=== PATIENT | female | born 1950 | race Caucasian/White ===

== ENCOUNTER → 2018-12-17 15:17 | Outpatient (CLI) | payer OTHER, MEDICARE, SELFPAY ==
--- NOTE | 2018-12-17 | DI.MG.S_ITS ---
BILATERAL DIGITAL SCREENING MAMMOGRAM 3D/2D WITH CAD: 12/17/2018 CLINICAL: Routine screening. Comparison is made to exams dated: 12/07/2017 mammogram, 11/21/2016 mammogram, and 11/18/2015 mammogram - [facility]. There are scattered fibroglandular elements in both breasts. Current study was also evaluated with a Computer Aided Detection (CAD) system. No significant masses, calcifications, or other findings are seen in either breast. There has been no significant interval change. IMPRESSION: NEGATIVE There is no mammographic evidence of malignancy. A 1 year screening mammogram is recommended. This exam was interpreted at Station ID: [id number]. NOTE: For mammograms, a report in lay terms will be sent to the patient. Approximately 15% of breast malignancies will not be visualized mammographically. In the management of a palpable breast mass, a negative mammogram must not discourage biopsy of a clinically suspicious lesion. Electronically Signed By: Richy pereira/jovita:12/17/2018 18:42:48 letter sent: Normal Exam ACR BI-RADS Category 1: Negative 3341F
== END ==
PROVIDERS: PCP Family Medicine; Visit Provider Family Medicine
DX: Z12.31 Encounter for screening mammogram for malignant neoplasm of breast (principal)
CPT/HCPCS: 77063; 77067

== ENCOUNTER → 2019-01-27 09:48 | Outpatient (CLI) | payer OTHER, MEDICARE, SELFPAY ==
--- NOTE | 2019-01-27 | DI.RAD.S_ITS ---
PROCEDURE: XR KNEE RT 3V INDICATIONS: RIGHT KNEE PAIN TECHNIQUE: 3 views of the knee were acquired. COMPARISON: [facility], , KNEE 3V RIGHT, 02/05/2012, 8:59. FINDINGS: Bones: No fractures or dislocations. No suspicious bony lesions. Scattered degenerative subchondral sclerosis and spurring. Mild narrowing of the medial and lateral and patellofemoral joint spaces which appears unchanged Soft tissues: No joint effusion. No suspicious soft tissue calcifications. There is mild prepatellar soft tissue swelling IMPRESSION: Mild prepatellar soft tissue swelling. Unchanged mild right knee joint degeneration since 02/05/12 Dictated by: Armani Del Rio M.D. on 01/27/2019 at 10:41 Approved by: Armani Del Rio M.D. on 01/27/2019 at 10:43
== END ==
PROVIDERS: PCP Family Medicine; Visit Provider Family Medicine
DX: M25.561 Pain in right knee (principal); M17.11 Unilateral primary osteoarthritis, right knee; M79.89 Other specified soft tissue disorders
CPT/HCPCS: 73562

== ENCOUNTER 2019-03-17 07:30 | Day surgery (SDC) | payer OTHER, MEDICARE, SELFPAY ==
--- NOTE | 2019-03-17 | PATH_ITS ---
[facility] Accession Number: [id number] . 01 Material submitted: . PART A: colon - ASCENDING COLON NEAR CECUM PART B: colon - COLON BIOPSY AT 80 CM . 02 Diagnosis: A. Ascending Colon Near Cecum, Biopsy: Tubular adenoma in two of three fragments. . B. Colon, 80 cm, Biopsy: Tubular adenoma in one of two fragments. Benign lymphoid aggregate in one fragment. MRV/03/18/2019 . 02 Electronically signed: . Sabi Gandhi MD, Pathologist NPI- [id number] . 01 Gross description: . Part A: ASCENDING COLON NEAR CECUM: Received in formalin are 2 fragment(s) of toribio, soft tissue measuring 0.2 x 0.1 x 0.1 cm to 0.4 x 0.3 x 0.2 cm which is entirely submitted and submitted entirely in 1 cassette(s) Part B: COLON BIOPSY AT 80 CM: Received in formalin are 2 fragment(s) of toribio, soft tissue measuring 0.2 x 0.2 x 0.2 cm to 0.3 x 0.2 x 0.2 cm which is entirely submitted and submitted entirely in 1 cassette(s) /DMC /DMC . 02 Pathologist provided ICD-10: D12.2, D12.6 . 02 CPT . 056385, [id number] Performed at: 01 [facility] [address] [place] [address], [place], [place] [id number] MD Jamey Rutherford MD Phone: [phone] Performed at: 02 [facility] [address] [place], [place] [id number] MD Sabi Gandhi MD Phone: [phone]
[2019-03-17 08:00] VITALS: BP 145/91; PULSE 74; RESP 16; TEMP 36.6; O2SAT 74; BMI 19.3
[2019-03-17] MEDS: SODIUM CHLORIDE 0.9% 1,000 ML 200 ML IV (08:04)
[2019-03-17] MEDS: ONDANSETRON 4 MG/2 ML INJ IV (08:29)
--- NOTE | 2019-03-17 08:40 | P.HP_ITS ---
History of Present Illness Date Patient Seen: 03/17/19 Time Patient Seen: 08:25 Chief complaint: [id number] Narrative: The patient is a woman here for screening colonoscopy. Last exam was 5 years ago. She has had polyps removed in the past. Patient History Medical History (Updated 03/17/19 @ 08:40 by Gilberto Anderson MD) Hypertension (Chronic) Hypothyroidism (Chronic) Kidney stones (Chronic) Type 2 diabetes mellitus (Chronic) Surgical History (Updated 03/17/19 @ 08:40 by Gilberto Anderson MD) H/O knee surgery (Resolved) History of appendectomy (Resolved) Social History household members: spouse Smoking Status: Never smoker Family & Social History Social History: household members spouse Tobacco & Substance use: Smoking Status Never smoker Meds Home Medications Medication Instructions Recorded Confirmed Type hydrocodone-acetaminophen [[place]] 1 - 2 tab PO Q6HP PRN #5 tab 10/12/17 03/17/19 Rx Saccharomyces boulardii 250 mg 250 mg PO BID 09/09/18 03/17/19 History capsule almotriptan malate 6.25 mg tablet 6.25 mg PO ONCE 09/09/18 03/17/19 History atenolol 50 mg tablet 50 mg PO DAILY 09/09/18 03/17/19 History atorvastatin 80 mg tablet 80 mg PO DAILY 09/09/18 03/17/19 History calcium citrate PO 09/09/18 01/28/19 History cholecalciferol (vitamin D3) 2,000 4,000 unit PO DAILY 09/09/18 03/17/19 History unit capsule flaxseed oil 1,000 mg capsule 1,000 mg PO DAILY 09/09/18 03/17/19 History fluoxetine 20 mg capsule 20 mg PO DAILY 09/09/18 03/17/19 History levothyroxine 50 mcg tablet 50 mcg PO DAILY 09/09/18 03/17/19 History lorazepam 0.5 mg tablet 0.5 mg PO Q8H PRN tab 09/09/18 03/17/19 History metformin 500 mg tablet 1,000 mg PO BID 09/09/18 03/17/19 History acyclovir 5 % topical ointment 1 applictn TOP BID PRN gram 01/28/19 03/17/19 History nystatin 100,000 unit/gram topical 1 applictn TOP TID PRN 01/28/19 03/17/19 History cream triamcinolone acetonide 0.1 % 1 applictn TOP QID PRN 01/28/19 03/17/19 History topical cream Resmed Airsense 10 CPAP #1 ea 01/29/19 History Allergies Allergy/AdvReac Type Severity Reaction Status Date / Time latex [LATEX] Allergy Severe HIVES Verified 03/17/19 08:15 cephalexin AdvReac Intermediate Diarrhea Verified 03/17/19 08:15 Review of Systems Review of Systems No cough heart problems chest pain black or bloody bowel movements seizures or blackouts Exam Vital Signs (past 8 hours): - 03/17/19 08:00 Temperature 97.8 F Pulse Rate 74 Respiratory Rate 16 Blood Pressure 145/91 H Pulse Oximetry 74 L Oxygen Delivery Method Room Air Oxygen Flow Rate 95 Narrative Exam Narrative: Pleasant cooperative patient no apparent distress. Lungs are clear to auscultation. No rales or rhonchi. Heart regular rate and rhythm no murmur gallop. Abdomen is soft nontender without mass. No obvious hernias. Patient is alert and oriented x3. Assessment & Plan Assessment & Plan narrative: The patient for a screening colonoscopy. I have discussed the procedure with them. Risks of bleeding, perforation which would necessitate major operation, failure to find remove all lesions, the potential tattoo were all discussed. All questions were answered. They wished to proceed.
--- NOTE | 2019-03-17 08:40 | PM.PREOP ---
Pre-operative Note Interval Note History & Physical reviewed/Exam performed by Physician: Yes Changes to H&P: No ASA Class (for procedural sedation): III
[2019-03-17] MEDS: MIDAZOLAM 5 MG/5 ML VIAL IV (09:00)
[2019-03-17] MEDS: fentaNYL 250 MCG/5 ML INJ IV (09:01)
[2019-03-17 09:10] VITALS: BP 104/65; PULSE 68; RESP 12; TEMP 36.3; O2SAT 96
--- NOTE | 2019-03-17 09:12 | P.OP.ENDO_ITS ---
Operative Date/Time/Diagnoses Date of procedure: 03/17/19 Time of procedure: 09:09 Pre-op diagnosis: History of polyps. Screening exam. Last exam 5 years ago. Post-op diagnosis: same (Scattered but rare diverticuli. Two small polyps. Internal hemorrhoids.) Procedure & Clinicians Study performed: Colonoscopy with cold biopsy Same procedure as scheduled: Yes Indications: Screening Surgeon: Gilberto Anderson Procedure Notes SCOAP/Timeout: Performed Procedure in detail: The patient was placed in the left lateral decubitus position and underwent IV sedation directed by the surgeon consisting of fentanyl and Versed. Digital exam was unremarkable. The scope was inserted and advanced through the rectum into the sigmoid, descending, transverse, and ascending colon. Pressure was applied to make our way into the cecum. There was a small lesion just above side the cecum which I biopsied on the way in.. The cecum was reached identified by the ileocecal valve and the area where an appendiceal opening would have been located (patient has had an appendectomy and it appears the entire opening was obliterated). The scope was gradually brought out. One other Polyps was found at 80 cm from the anal verge. The sc ope ultimately was retroflexed in the rectum. The appearance was remarkable for moderately size hemorrhoids without ulceration. The scope was removed and the patient tolerated the procedure well prep was very good. Scope withdrawal time: Eightmin(excludes biopsy time) Sedation minutes: 26 Findings: diverticulosis (Rare but scattered), internal hemorrhoids and polyp (Two small polyps) Recommendations: Colonscopy in 5 years Follow up: as needed Disposition: PACU
[2019-03-17 09:17] VITALS: BP 100/64; PULSE 70; RESP 14; O2SAT 94
[2019-03-17 09:22] VITALS: BP 114/75; PULSE 70; RESP 14; O2SAT 94
[2019-03-17 09:25] VITALS: BP 107/81; PULSE 70; RESP 14; TEMP 36.6; O2SAT 94
[2019-03-17 09:40] VITALS: BP 110/80; PULSE 70; RESP 14; TEMP 36.5; O2SAT 94
== END 2019-03-17 09:46 | disposition home or self-care (01) ==
LOC: ENDO 07:34
PROVIDERS: PCP Family Medicine; Visit Provider Specialist
PROC: 0DJD8ZZ Inspection of Lower Intestinal Tract, Via Natural or Artificial Opening Endoscopic (ICD-10-PCS; CPT 45378; principal; 2019-03-17 08:45)
DX: Z86.010 Personal history of colon polyps (principal); K64.8 Other hemorrhoids; K57.30 Diverticulosis of large intestine without perforation or abscess without bleeding; I10 Essential (primary) hypertension; E03.9 Hypothyroidism, unspecified; E11.9 Type 2 diabetes mellitus without complications; Z79.84 Long term (current) use of oral hypoglycemic drugs; D12.6 Benign neoplasm of colon, unspecified; D12.2 Benign neoplasm of ascending colon
CPT/HCPCS: 45380; 99152; J2250; J2405; J3010

== ENCOUNTER → 2019-08-04 11:17 | Outpatient (ROUT) | payer OTHER, MEDICARE, SELFPAY ==
[2019-08-04 11:36] LABS: Influenza A - CEPHEID Flu A NEGATIVE (NEGATIVE); Influenza B - CEPHEID Flu B NEGATIVE (NEGATIVE)
== END ==
PROVIDERS: PCP Family Medicine; Visit Provider Nurse Practitioner Family
DX: R05 Cough (principal); R50.9 Fever, unspecified; R51 Headache
CPT/HCPCS: 87502

== ENCOUNTER → 2020-02-24 14:39 | Outpatient (CLI) | payer OTHER, MEDICARE, SELFPAY ==
--- NOTE | 2020-02-24 | DI.MG.S_ITS ---
BILATERAL DIGITAL SCREENING MAMMOGRAM 3D/2D WITH CAD: 02/24/2020 CLINICAL: Routine screening. Comparison is made to exams dated: 12/17/2018 mammogram, 12/07/2017 mammogram, and 11/21/2016 mammogram - [facility]. The tissue of both breasts is predominantly fatty. Current study was also evaluated with a Computer Aided Detection (CAD) system. No significant masses, calcifications, or other findings are seen in either breast. There has been no significant interval change. IMPRESSION: NEGATIVE There is no mammographic evidence of malignancy. A 1 year screening mammogram is recommended. This exam was interpreted at Station ID: [id number]. NOTE: For mammograms, a report in lay terms will be sent to the patient. Approximately 15% of breast malignancies will not be visualized mammographically. In the management of a palpable breast mass, a negative mammogram must not discourage biopsy of a clinically suspicious lesion. Electronically Signed By: Susan willis/jovita:02/24/2020 17:48:15 letter sent: Normal Exam ACR BI-RADS Category 1: Negative 3341F
== END ==
PROVIDERS: PCP Family Medicine; Referring Provider Family Medicine; Visit Provider Family Medicine
DX: Z12.31 Encounter for screening mammogram for malignant neoplasm of breast (principal)
CPT/HCPCS: 77063; 77067

== ENCOUNTER → 2020-09-16 17:05 | Outpatient (CLI) | payer OTHER, MEDICARE, SELFPAY ==
--- NOTE | 2020-09-16 17:08 | DI.RAD.S_ITS ---
PROCEDURE: XR FINGER RT MIN 2V INDICATIONS: LEFT MIDDLER FINGER PAIN TECHNIQUE: AP hand, 2 views of the 3rd finger(s) acquired. COMPARISON: None. FINDINGS: Bones: No fractures or dislocations. No suspicious bony lesions. Soft tissues: No suspicious soft tissue calcifications. IMPRESSION: No fracture or foreign body seen, mild soft tissue swelling at the distal phalanx of the 3rd digit. Dictated by: Graeme Landa M.D. on 09/16/2020 at 17:33 Approved by: Graeme Landa M.D. on 09/16/2020 at 17:34
== END ==
PROVIDERS: PCP Family Medicine; Referring Provider Family Medicine; Visit Provider Family Medicine
DX: M79.645 Pain in left finger(s) (principal); M79.89 Other specified soft tissue disorders
CPT/HCPCS: 73140

== ENCOUNTER → 2021-02-22 11:02 | Outpatient (CLI) | payer OTHER, MEDICARE, SELFPAY ==
[2021-02-22 12:43] LABS: COVID19 -Nasal RAPID Negative (Negative)
== END ==
PROVIDERS: PCP Family Medicine; Visit Provider Physician Assistant
DX: Z01.812 Encounter for preprocedural laboratory examination (principal); Z20.822 Contact with and (suspected) exposure to COVID-19
CPT/HCPCS: 87635

== ENCOUNTER → 2021-02-23 15:01 | Outpatient (CLI) | payer OTHER, MEDICARE, SELFPAY | PROVIDERS: PCP Family Medicine; Referring Provider Family Medicine; Visit Provider Family Medicine | DX: Z78.0 Asymptomatic menopausal state (principal); E11.9 Type 2 diabetes mellitus without complications | CPT/HCPCS: 77080 ==

== ENCOUNTER → 2021-02-24 11:19 | Outpatient (CLI) | payer OTHER, MEDICARE, SELFPAY ==
--- NOTE | 2021-02-24 | DI.MG.S_ITS ---
BILATERAL DIGITAL SCREENING MAMMOGRAM 3D/2D WITH CAD: 02/24/2021 CLINICAL: Routine screening. Comparison is made to exams dated: 02/24/2020 mammogram, 12/17/2018 mammogram, and 12/07/2017 mammogram - [facility]. The tissue of both breasts is predominantly fatty. Current study was also evaluated with a Computer Aided Detection (CAD) system. No significant masses, calcifications, or other findings are seen in either breast. There has been no significant interval change. IMPRESSION: NEGATIVE There is no mammographic evidence of malignancy. A 1 year screening mammogram is recommended. This exam was interpreted at Station ID: [id number]. NOTE: For mammograms, a report in lay terms will be sent to the patient. Approximately 15% of breast malignancies will not be visualized mammographically. In the management of a palpable breast mass, a negative mammogram must not discourage biopsy of a clinically suspicious lesion. Electronically Signed By: Ray duncan/jovita:02/24/2021 14:39:27 letter sent: Normal Exam ACR BI-RADS Category 1: Negative 3341F
--- NOTE | 2021-02-24 | DI.US.S_ITS ---
PROCEDURE: US ABDOMEN COMPLETE INDICATIONS: FATTY LIVER, CHEST PAIN TECHNIQUE: Real-time scanning was performed of the abdominal and retroperitoneal organs, with image documentation. COMPARISON: [facility], US, US RENAL COMPLETE, 08/07/2018, 0:21. [facility], CT, CT KUB, 08/01/2018, 14:43. [facility], US, ABDOMEN COMPLETE, 02/13/2011, 10:23. FINDINGS: This study is limited by body habitus. Liver: The liver demonstrates enlarged size. The liver demonstrates generalized moderately increased echogenicity. This decreases ultrasound sensitivity for detection of hepatic masses. Gallbladder: There is a 6 mm gallbladder wall polyp seen. No findings of gallstones or sludge are seen. The gallbladder wall is not thickened, measuring 3 mm or less. No specific pericholecystic fluid is seen. The sonographic Kumar sign is negative. Biliary ducts: Intrahepatic bile ducts are non-dilated. Extrahepatic bile duct caliber measures 6 mm. Normal is 6-7 mm or less in diameter, or 10 mm or less post-cholecystectomy. Pancreas: Visualized portions of the pancreas are sonographically normal. Spleen: The spleen is enlarged, measuring 15 cm. Kidneys: Kidneys are normal in size and echotexture. Right kidney measures 12.4 cm long; left kidney measures 12.5 cm long. No hydronephrosis or nephrolithiasis. No solid masses. Aorta: Visualized aorta is normal in caliber at less than 3 cm. Iliacs: Proximal common iliac arteries are normal in caliber at less than 2.5 cm. IVC: Intrahepatic inferior vena cava is patent. Miscellaneous: No free abdominal fluid. IMPRESSION: Enlarged, fatty liver. Splenomegaly. 6 mm gallbladder wall polyp seen. Dictated by: Nando Aaron M.D. on 02/28/2021 at 8:34 Approved by: Nando Aaron M.D. on 02/28/2021 at 8:36
--- NOTE | 2021-02-27 20:41 | DI.NM.S_ITS ---
DATE OF SERVICE: 02/24/2021 PROCEDURE: Pharmacological perfusion study. INDICATIONS: Chest pain with underlying diabetes mellitus and hypertension. RADIOPHARMACEUTICAL: 24.7 millicurie technetium-99m Myoview IV was injected at stress and 24.7 millicurie technetium-99m Myoview IV was injected at rest. CARDIAC STRESS: The patient underwent IV Lexiscan perfusion study under the supervision of an attending staff. The patient received IV Lexiscan as per protocol. She remained hemodynamically stable. No chest discomfort or anginal symptoms. Baseline rhythm was sinus with mild sinus bradycardia and anteroseptal T-wave inversion. During stress, there were no new convincing ischemic changes. No significant arrhythmias seen. RAW DATA: Breast shadow was seen. GATED STUDY: Stress LV ejection fraction 85 percent without any obvious wall motion abnormalities. Resting end-diastolic volume 116 mL. TID ratio 0.79, which is within normal limits. Lung/heart ratio 0.35, which is within normal limits. MYOCARDIAL PERFUSION: Stress supine, resting supine and stress prone images were compared to each other. The stress supine and resting supine images revealed small size, mildly decreased perfusion of inferior wall, as well as mid to distal anterior wall, which got significantly improved during prone images suggestive of breast tissue attenuation artifact. CONCLUSION: I will call this study likely a normal myocardial perfusion study with evidence of breast tissue attenuation artifact, which got significantly improved during prone images. No convincing ischemia or infarction features seen during stress prone images. Left ventricular function is preserved. As far as perfusion scan is concerned, this is a low-risk myocardial perfusion scan. Bridgette Mcdonald - Yessica/cristopher doc#: [id number]/job#: [id number] dd: 02/27/2021 16:58:00 dt: 02/27/2021 20:04:00 DICTATING MD/COPIES TO: Gregg Naranjo MD COPIES MNE: YOLI;
== END ==
PROVIDERS: PCP Family Medicine; Referring Provider Family Medicine; Visit Provider Family Medicine
DX: Z12.31 Encounter for screening mammogram for malignant neoplasm of breast (principal); K76.0 Fatty (change of) liver, not elsewhere classified; K82.4 Cholesterolosis of gallbladder; R16.1 Splenomegaly, not elsewhere classified; R07.9 Chest pain, unspecified; E11.9 Type 2 diabetes mellitus without complications; I10 Essential (primary) hypertension; Z78.0 Asymptomatic menopausal state
CPT/HCPCS: 76700; 77063; 77067; 78452; 93017; A9502; J2785

== ENCOUNTER → 2021-05-09 15:37 | Outpatient (CLI) | payer OTHER, MEDICARE, SELFPAY ==
--- NOTE | 2021-05-09 | DI.CT.S_ITS ---
PROCEDURE: CT ABDOMEN PELVIS WO CON INDICATIONS: KIDNEY STONES TECHNIQUE: Noncontrast 5 mm thick sections acquired from the diaphragms to the symphysis. 5 mm coronal and sagittal reformats were then performed. For radiation dose reduction, the following was used: automated exposure control, adjustment of mA and/or kV according to patient size. COMPARISON: [facility], CT, CT KUB, 08/01/2018, 14:43. FINDINGS: Image quality: Excellent. ABDOMEN: Lung bases: Lung bases are clear. Heart size is normal. Solid organs: Liver is enlarged. No hepatic steatosis. Gallbladder is unremarkable . Pancreas is normal in contours. Spleen is normal in size. No adrenal nodules. Kidneys are normal in size, without hydronephrosis or nephrolithiasis. No ureteral stones or hydroureter. Peritoneum and bowel: Small hiatal hernia. Unenhanced bowel loops demonstrate normal wall thickness and caliber. No free fluid or air. Nodes and vessels: No retroperitoneal or mesenteric adenopathy by size criteria. Aorta and inferior vena cava are normal in caliber. Miscellaneous: No ventral hernias. PELVIS: Genitourinary: Bladder wall thickness is normal. Miscellaneous: No inguinal hernias or adenopathy. Bones: No suspicious bony lesions. No vertebral body compression fractures. Lumbar degenerative change. Canal stenosis at L3-L4 IMPRESSION: 1. No renal stones, ureteral stones, or hydronephrosis. 2. Hepatomegaly. 3. Small hiatal hernia. 4. Lumbar degenerative change with canal stenosis at L3-L4. 5. No evidence of acute abdominal process. Dictated by: Jorge Macias M.D. on 05/09/2021 at 17:06 Approved by: Jorge Macias M.D. on 05/09/2021 at 17:10
== END ==
PROVIDERS: PCP Family Medicine
DX: N20.0 Calculus of kidney (principal); R16.0 Hepatomegaly, not elsewhere classified; K44.9 Diaphragmatic hernia without obstruction or gangrene; M47.816 Spondylosis without myelopathy or radiculopathy, lumbar region; M48.061 Spinal stenosis, lumbar region without neurogenic claudication
CPT/HCPCS: 74176

== ENCOUNTER → 2021-09-04 12:34 | Outpatient (CLI) | payer OTHER, MEDICARE, SELFPAY ==
--- NOTE | 2021-09-04 12:37 | DI.RAD.S_ITS ---
PROCEDURE: XR KNEE RT 3V INDICATIONS: swollen, painful R knee TECHNIQUE: 3 views of the knee were acquired. COMPARISON: [facility], , XR KNEE RT 3V, 01/27/2019, 10:11. FINDINGS: Bones: No fractures or dislocations. No suspicious bony lesions. Soft tissues: Mild joint effusion. No suspicious soft tissue calcifications. IMPRESSION: No visualized acute fracture or dislocation. However, if clinical concern and/or pain persist, short interval imaging followup in 7-10 days is recommended, as occult injury cannot be definitively excluded. Dictated by: Minnie Rowland M.D. on 09/04/2021 at 13:24 Approved by: Minnie Rowland M.D. on 09/04/2021 at 13:24
== END ==
PROVIDERS: PCP Family Medicine; Referring Provider Physician Assistant; Visit Provider Physician Assistant
DX: M25.561 Pain in right knee (principal); M25.461 Effusion, right knee
CPT/HCPCS: 73562

== ENCOUNTER → 2021-10-27 12:24 | Outpatient (CLI) | payer OTHER, MEDICARE, SELFPAY ==
--- NOTE | 2021-10-27 | DI.RAD.S_ITS ---
PROCEDURE: XR SHOULDER LT MIN 2V INDICATIONS: Adhesive capsulitis of left shoulder TECHNIQUE: 3 views of the shoulder were acquired. COMPARISON: None. FINDINGS: Bones: No fractures or dislocations. No suspicious bony lesions. Visualized ribs appear intact. Soft tissues: No suspicious soft tissue calcifications. IMPRESSION: No acute fracture. No osseous lesion. If symptoms and/or clinical suspicion for pathology persist, further assessment with repeat, or advanced imaging (e.g., CT, MRI, or bone scan) may be helpful for further assessment. Dictated by: Yariel Marino M.D. on 10/27/2021 at 14:52 Approved by: Yariel Marino M.D. on 10/27/2021 at 14:52
== END ==
PROVIDERS: PCP Family Medicine; Referring Provider Family Medicine; Visit Provider Family Medicine
DX: M75.02 Adhesive capsulitis of left shoulder (principal); M65.812 Other synovitis and tenosynovitis, left shoulder
CPT/HCPCS: 73030

== ENCOUNTER → 2022-02-26 13:52 | Outpatient (CLI) | payer OTHER, MEDICARE, SELFPAY ==
--- NOTE | 2022-02-26 13:53 | DI.MG.S_ITS ---
BILATERAL DIGITAL SCREENING MAMMOGRAM 3D/2D WITH CAD: 02/26/2022 CLINICAL: Routine screening. Family history of breast cancer. Comparison is made to exams dated: 02/24/2021 mammogram, 02/24/2020 mammogram, 12/17/2018 mammogram, and 12/07/2017 mammogram - [facility]. The tissue of both breasts is predominantly fatty. Current study was also evaluated with a Computer Aided Detection (CAD) system. No significant masses, calcifications, or other findings are seen in either breast. There has been no significant interval change. IMPRESSION: NEGATIVE There is no mammographic evidence of malignancy. A 1 year screening mammogram is recommended. Based on the Tyrer Cuzick model (a risk assessment model) the patient's lifetime risk is 3.7% and her 10 year risk is 2.2%. According to the ACR, ACS, and NCCN guidelines, an annual breast MRI exam along with mammogram is recommended if the patient's lifetime risk is 20% or greater. This exam was interpreted at Station ID: [id number]. NOTE: For mammograms, a report in lay terms will be sent to the patient. Approximately 15% of breast malignancies will not be visualized mammographically. In the management of a palpable breast mass, a negative mammogram must not discourage biopsy of a clinically suspicious lesion. Electronically Signed By: lD ayala/jovita:02/27/2022 08:06:19 letter sent: Normal Exam ACR BI-RADS Category 1: Negative 3341F
== END ==
PROVIDERS: PCP Family Medicine; Referring Provider Family Medicine; Visit Provider Family Medicine
DX: Z12.31 Encounter for screening mammogram for malignant neoplasm of breast (principal); Z80.3 Family history of malignant neoplasm of breast
CPT/HCPCS: 77063; 77067

== ENCOUNTER → 2022-04-03 15:58 | Outpatient (CLI) | payer OTHER, MEDICARE, SELFPAY ==
--- NOTE | 2022-04-03 | DI.US.S_ITS ---
PROCEDURE: US ABDOMEN COMPLETE INDICATIONS: DISEASE OF GALLBLADDER/FATTY LIVER TECHNIQUE: Real-time scanning was performed of the abdominal and retroperitoneal organs, with image documentation. COMPARISON: [facility], US, ABDOMEN COMPLETE, 02/13/2011, 10:23. FINDINGS: Liver: Liver is enlarged, measuring 19.6 cm and demonstrates diffusely increased echogenicity. Gallbladder: Small polyps within the gallbladder wall measuring 6 mm and 5 mm. Biliary ducts: Intrahepatic bile ducts are non-dilated. Extrahepatic bile duct caliber measures 5 mm. Normal is 6-7 mm or less in diameter, or 10 mm or less post-cholecystectomy. Pancreas: Visualized portions of the pancreas are sonographically normal. Spleen: Spleen is normal in size and homogeneous in echotexture. Kidneys: Kidneys are normal in size and echotexture. Right kidney measures 12.6 cm long; left kidney measures 11.4 cm long. No hydronephrosis or nephrolithiasis. No solid masses. Left inferior pole renal cyst measuring 9 mm. Aorta: Not well seen but within normal limits as visualized. Iliacs: Not seen IVC: Intrahepatic inferior vena cava is patent. Miscellaneous: No free abdominal fluid. IMPRESSION: 1. Gallbladder polyps. 2. No acute process. 3. Hepatic steatosis. Dictated by: Yariel Marino M.D. on 04/03/2022 at 17:05 Approved by: Yariel Marino M.D. on 04/03/2022 at 17:06
== END ==
PROVIDERS: PCP Family Medicine; Referring Provider Family Medicine; Visit Provider Family Medicine
DX: K82.8 Other specified diseases of gallbladder (principal); K82.4 Cholesterolosis of gallbladder; K76.0 Fatty (change of) liver, not elsewhere classified
CPT/HCPCS: 76700

== ENCOUNTER → 2023-02-27 09:51 | Outpatient (CLI) | payer MEDICARE, OTHER, SELFPAY ==
--- NOTE | 2023-02-27 | DI.MG.S_ITS ---
BILATERAL DIGITAL SCREENING MAMMOGRAM 3D/2D WITH CAD: 02/27/2023 CLINICAL: Routine screening. Family history of breast cancer. Comparison is made to exams dated: 02/26/2022 mammogram, 02/24/2021 mammogram, and 02/24/2020 mammogram - . Both breasts are almost entirely fatty (category a/<25% glandular tissue). Current study was also evaluated with a Computer Aided Detection (CAD) system. No significant masses, calcifications, or other findings are seen in either breast. There has been no significant interval change. IMPRESSION: NEGATIVE There is no mammographic evidence of malignancy. A 1 year screening mammogram is recommended. Based on the Tyrer Cuzick model (a risk assessment model) the patient's lifetime risk is 3.5% and her 10 year risk is 2.2%. According to the ACR, ACS, and NCCN guidelines, an annual breast MRI exam along with mammogram is recommended if the patient's lifetime risk is 20% or greater. This exam was interpreted at Station ID: [id number]. NOTE: For mammograms, a report in lay terms will be sent to the patient. Approximately 15% of breast malignancies will not be visualized mammographically. In the management of a palpable breast mass, a negative mammogram must not discourage biopsy of a clinically suspicious lesion. Electronically Signed By: Rosa hodges/jovita:02/27/2023 11:48:59 letter sent: Normal Exam ACR BI-RADS Category 1: Negative 3341F
== END ==
PROVIDERS: PCP Family Medicine; Referring Provider Family Medicine; Visit Provider Family Medicine
DX: Z12.31 Encounter for screening mammogram for malignant neoplasm of breast (principal); Z80.3 Family history of malignant neoplasm of breast
CPT/HCPCS: 77063; 77067

== ENCOUNTER → 2023-04-18 06:49 | Outpatient (CLI) | payer MEDICARE, OTHER, SELFPAY ==
--- NOTE | 2023-04-18 | DI.US.S_ITS ---
PROCEDURE: US ABDOMEN COMPLETE INDICATIONS: DIARRHEA AND INCREASED LIVER FUNCTION TESTS TECHNIQUE: Real-time scanning was performed of the abdominal and retroperitoneal organs, with image documentation. COMPARISON: [facility], US, US ABDOMEN COMPLETE, 04/03/2022, 16:14. FINDINGS: Liver: The liver measures 22.8 cm in length and demonstrates increased echogenicity throughout. Gallbladder: The gallbladder wall measures 2.9 mm in diameter. There is a 6 mm inferior and a 5 mm superior gallbladder polyp. These are unchanged when compared with the prior ultrasound dated April 03, 2022. Biliary ducts: Intrahepatic bile ducts are non-dilated. Extrahepatic bile duct caliber measures 5.5 mm. Normal is 6-7 mm or less in diameter, or 10 mm or less post-cholecystectomy. Pancreas: Visualized portions of the pancreas are sonographically normal. There is a 2.0 x 1.8 x 0.7 cm mass adjacent to the pancreatic head which may represent a small lymph node. The tail of the pancreas is not visualized. Spleen: The spleen measures 17.4 cm in length. This is increased from the prior study where it measured 15.4 cm. Kidneys: Kidneys are normal in size and echotexture. Right kidney measures 10.7 cm long; left kidney measures 11.2 cm long. No hydronephrosis or nephrolithiasis. No solid masses. Bilateral renal cysts are noted. Aorta: The proximal aorta measures 3.4 cm in diameter. The distal aorta measures 2.0 cm. Iliacs: The iliacs are not visualized. IVC: Intrahepatic inferior vena cava is patent. Miscellaneous: No free abdominal fluid. IMPRESSION: 1. Hepatomegaly and increased hepatic echogenicity suggesting hepatic steatosis. However, other sources of hepatocellular dysfunction could be considered in the differential diagnosis. 2. Splenomegaly, increased from the prior study suggesting portal hypertension. 3. Sonographic findings which may represent a small portacaval lymph nodes; however if further characterization is warranted, CT of this region could be used. 4. Abdominal aortic aneurysm. 5 year sonographic surveillance recommended. 5. Stable gallbladder polyps. Dictated by: Rosa Barnett M.D. on 04/18/2023 at 10:53 Approved by: Rosa Barnett M.D. on 04/18/2023 at 11:01
--- NOTE | 2023-04-18 | DI.ECHO.S_ITS ---
[facility] +---------+ : : [address] : : : : [id number] : : : : Phone: [phone]---------+ Echocardiogram Report + + :Name: MICAELA ALBERTO Study Date: 04/18/2023 Height: 65 in : :[facility] ReadingLocation: Weight: 220 lb : : Gender: Female BSA: 2.1 m2 : :: 1950 Age: 72 yrs BP: 152/87 mmHg: :Reason For Study: Cardiac Murmur : :Ordering Physician: KARTIK, : :LUCÍA Performed By: Celina Bueno : :Referring: LUCÍA VERDUGO : + + Interpretation Summary Sinus bradycardia. Heart rate is 52-55 bpm. Normal LV size and wall thickness. Normal wall motion and LV systolic function. Ejection fraction is 50-55%. Normal chamber sizes. No significant valvular abnormalities. No prior study available for comparison. Procedure: A two-dimensional transthoracic echocardiogram with color flow and Doppler was performed. The study quality was technically adequate. There is no prior echocardiogram noted for this patient. The patient was in a bradycardic rhythm during the exam. Left Ventricle: The left ventricle is normal in size. The ejection fraction is estimated to be 50-55%. Diastolic parameters suggest a relaxation abnormality of the left ventricle, consistent with probable normal filling pressures. Right Ventricle: The right ventricle is normal in size and function. Atria: The left atrial size is normal. Right atrial size is normal. There is no Doppler evidence for an interatrial shunt. Mitral Valve: The mitral valve is normal. There is no mitral valve stenosis. There is mild mitral regurgitation. Aortic Valve: The aortic valve is not well visualized but is presumably normal. There is no aortic valve stenosis. There is mild aortic regurgitation. Tricuspid Valve: The tricuspid valve is normal. There is no tricuspid stenosis. There is trace tricuspid regurgitation. Pulmonary artery pressures cannot be estimated because of the lack of a measurable TR jet velocity. Pulmonic Valve: The pulmonic valve is not well visualized. There is no pulmonic valvular stenosis. There is trace pulmonic regurgitation. Great Vessels: The aortic root is normal size. The ascending aorta is at the upper limits of normal in size. The pulmonary artery is normal size. The IVC is of normal diameter and collapses greater than 50% with a sniff. This suggests a low right atrial pressure of 3 mm Hg. Pericardium/ Pleura There is no pericardial effusion. There is no pleural effusion. MMode/2D Measurements & Calculations LVIDd: 4.4 cm LVOT diam: 2.0 cm LVIDs: 3.1 cm Ao root diam: 3.6 cm FS: 29.5 % asc Aorta Diam: 3.7 cm IVSd: 1.1 cm LVPWd: 1.0 cm LV mendoza. diameter/BSA (cm/m^2): 2.1 LV sys. diameter/BSA (cm/m^2): 1.5 LA A2 area: 19.5 cm2 RA long axis: 5.1 cm LA A4 area: 17.0 cm2 RA area: 15.0 cm2 LA length (vol): 5.5 cm RA vol: 37.3 ml LA vol: 51.0 ml RA : 18.1 ml/m2 LA vol index: 24.7 ml/m2 RVD1 (basal): 3.7 cm LVLs ap4: 5.5 cm LVLd ap2: 6.8 cm TAPSE_phl: 2.6 cm LVLs ap2: 6.0 cm Doppler Measurements & Calculations Ao V2 max: 137.5 cm/sec LVOT Max Murali: 100.1 cm/sec Ao V2 mean: 88.6 cm/sec LV V1 max P.0 mmHg Ao max P.0 mmHg LV V1 VTI: 23.0 cm Ao mean P.0 mmHg LIANA(I,D): 2.3 cm2 Ao V2 VTI: 32.0 cm LIANA(V,D): 2.3 cm2 sev ratio: 0.72 LIANA indexed to BSA (cm^2/m^2): 1.1 MV E max murali: 87.1 cm/sec PA V2 max: 91.7 cm/sec MV A max murali: 83.3 cm/sec PA V2 mean: 61.8 cm/sec MV E/A: 1.0 PA mean P.0 mmHg Med Peak E' Murali: 7.1 cm/sec E/E' med: 12.3 Lat Peak E' Murali: 6.3 cm/sec E/E' lat: 13.7 E/e' average: 13.0 MV dec time: 0.20 sec SV(LVOT): 72.3 ml AV VR_phl: 0.72 LIANA(VTI)/BSA_phl: 1.1 Electronically signed by: Coleen Albert M.D. on Reading Physician:04/18/2023 04:31 PM
== END ==
PROVIDERS: PCP Family Medicine; Referring Provider Family Medicine; Visit Provider Family Medicine
DX: I08.0 Rheumatic disorders of both mitral and aortic valves (principal); I71.40 Abdominal aortic aneurysm, without rupture, unspecified; K82.4 Cholesterolosis of gallbladder; R16.1 Splenomegaly, not elsewhere classified; R01.1 Cardiac murmur, unspecified; R79.89 Other specified abnormal findings of blood chemistry; R19.7 Diarrhea, unspecified
CPT/HCPCS: 76700; 93306

== ENCOUNTER → 2023-05-22 13:23 | Outpatient (CLI) | payer MEDICARE, OTHER, SELFPAY ==
[2023-05-22 14:07] LABS: Estimated Glomerular Filt Rate > 60 mL/min (>60)
--- NOTE | 2023-05-22 14:22 | DI.CT.S_ITS ---
PROCEDURE: CT ABDOMEN LIVER PROTOCOL INDICATIONS: Fatty (change of) liver TECHNIQUE: 4 phase scanning was performed. Non-contrast 5 mm axial sections acquired from the diaphragm to the iliac crests. Following the administration of intravenous contrast, 5 mm thick arterial-phase, portal venous-phase, and 5-minute delayed phase images were acquired through the liver. 5 mm thick coronal and sagittal reformats were performed. For radiation dose reduction, the following was used: automated exposure control, adjustment of mA and/or kV according to patient size. COMPARISON: [facility], CT, CT ABDOMEN PELVIS WO [facility], 05/09/2021, 15:44. FINDINGS: Image quality: Good Lower chest: Basal scarring and atelectasis. Solid organs: Hepatomegaly again seen, with craniocaudal dimension measuring 23-24 cm. No focal suspicious hepatic lesion. Borderline decreased attenuation of the liver can be seen with mild steatosis. Gallbladder is unremarkable. No pathologic dilation of the biliary system or pancreatic duct. Borderline splenomegaly at 13 to 14 cm. There is a duodenal diverticulum adjacent to the pancreatic ampulla. Bilateral cortical thinning of the kidneys. No hydronephrosis. No obstructing renal stone. Nonobstructing small calculi are seen. Vessels and lymph nodes: There are prominent upper abdominal lymph nodes which may be reactive, for example in the setting of chronic liver disease. No abdominal aortic aneurysm. The main portal vein is patent. No high-grade portal venous varices. Bowel and peritoneum: No evidence of small bowel obstruction, pathologic ascites, or intra-abdominal abscess. Body wall: Unremarkable Bones: No acute or suspicious osseous finding. There are degenerative changes. IMPRESSION: Hepatomegaly and borderline splenomegaly. Slightly decreased hepatic attenuation on noncontrast images can be seen with borderline/mild steatosis. No suspicious focal hepatic lesion. If further evaluation is desired, consider sampling or MRI. Dictated by: Samm Peña M.D. on 05/22/2023 at 16:42 Approved by: Samm Peña M.D. on 05/22/2023 at 16:46
== END ==
PROVIDERS: Radiology Diagnostic Radiology; PCP Family Medicine; Referring Provider Family Medicine; Visit Provider Family Medicine
DX: K76.0 Fatty (change of) liver, not elsewhere classified (principal); R16.0 Hepatomegaly, not elsewhere classified; R16.1 Splenomegaly, not elsewhere classified
CPT/HCPCS: 36415; 74170; 82565

== ENCOUNTER → 2023-07-08 10:01 | Outpatient (CLI) | payer MEDICARE, OTHER, SELFPAY ==
--- NOTE | 2023-07-08 | DI.RAD.S_ITS ---
PROCEDURE: XR CHEST 2V INDICATIONS: COUGH TECHNIQUE: 2 views of the chest were acquired. COMPARISON: [facility], , CHEST 2 VIEW, 06/28/2017, 14:37. FINDINGS: Surgical changes and devices: None. Lungs and pleura: Again noted is a calcified granuloma involving the patient's right midlung. No new focal lung infiltrate is seen. There is some mild stable scarring in the left midlung. No pleural effusions or pneumothorax. Mediastinum: Mediastinal contours are normal. Heart size is at the upper limits normal. Bones and chest wall: No suspicious bony abnormalities. Soft tissues appear unremarkable. IMPRESSION: No evidence for active disease in chest. Dictated by: Tucker Toledo M.D. on 07/08/2023 at 10:28 Approved by: Tucker Toledo M.D. on 07/08/2023 at 10:31
== END ==
PROVIDERS: PCP Family Medicine; Referring Provider Family Medicine; Visit Provider Family Medicine
DX: R05.1 Acute cough (principal)
CPT/HCPCS: 71046

== ENCOUNTER → 2023-09-12 11:01 | Outpatient (CLI) | payer MEDICARE, OTHER, SELFPAY ==
--- NOTE | 2023-09-12 | DI.CT.S_ITS ---
PROCEDURE: CT SINUS SCREEN WO CON INDICATIONS: Acute sinusitis TECHNIQUE: Noncontrast 3.0 mm axial images acquired from the frontal sinuses to the mid-sella, with coronal and sagittal reformats. For radiation dose reduction, the following was used: automated exposure control, adjustment of mA and/or kV according to patient size. COMPARISON: None. FINDINGS: Image quality: Excellent. Maxillary Sinuses: No bony remodeling or destruction. Moderate mucosal thickening of the right maxillary sinus. The left maxillary sinus is clear.. Ethmoid Air Cells: No bony remodeling or destruction. Sinuses are clear. Sphenoid Sinuses: No bony remodeling or destruction. Moderate mucosal thickening of the left sphenoid sinus. The right sphenoid sinus is clear.. Frontal Sinuses: No bony remodeling or destruction. Sinuses are clear. Ostiomeatal Complexes: Right ostiomeatal complex is opacified. Left ostiomeatal complex is narrowed but patent.. Small bilateral Adrianne cells. Miscellaneous: Visualized intra-orbital contents are normal. No naa bullosa or paradoxical turbinate curvature. Minimal rightward nasal septal deviation with spurring. IMPRESSION: Moderate right maxillary and left sphenoid sinusitis as above. Dictated by: Alberto Watkins M.D. on 09/12/2023 at 12:24 Approved by: Alberto Watkins M.D. on 09/12/2023 at 12:27
== END ==
LOC: CT 11:02
PROVIDERS: PCP Family Medicine; Referring Provider Family Medicine; Visit Provider Family Medicine
DX: J01.90 Acute sinusitis, unspecified (principal); J32.8 Other chronic sinusitis; R05.1 Acute cough
CPT/HCPCS: 70486

== ENCOUNTER → 2023-11-06 15:27 | Outpatient (CLI) | payer MEDICARE, OTHER, SELFPAY ==
--- NOTE | 2023-11-06 15:29 | DI.CT.S_ITS ---
PROCEDURE: CT SINUS SCREEN WO CON INDICATIONS: Chronic maxillary sinusitis TECHNIQUE: Noncontrast 3.0 mm axial images acquired from the frontal sinuses to the mid-sella, with coronal and sagittal reformats. For radiation dose reduction, the following was used: automated exposure control, adjustment of mA and/or kV according to patient size. COMPARISON: [facility], CT, HEAD WITHOUT CONTRAST, 12/01/2009, 14:40. [facility], CT, CT SINUS SCREEN WO CON, 09/12/2023, 11:24. FINDINGS: Image quality: Excellent. Maxillary Sinuses: [id number] mucosal thickening can be seen within the left maxillary sinus, with mild mucosal thickening within the inferior right maxillary sinus. No definite bony changes are seen. Ethmoid Air Cells: No bony remodeling or destruction. Sinuses are clear. Sphenoid Sinuses: No bony remodeling or destruction. There is moderate mucosal thickening within the left sphenoid sinus. Frontal Sinuses: No bony remodeling or destruction. Sinuses are clear. Ostiomeatal Complexes: The ostiomeatal complexes are patent, yet they are constitutionally narrowed, with bilateral Adrianne cells. Miscellaneous: Visualized intra-orbital contents are normal. No naa bullosa or paradoxical turbinate curvature. There is minimal rightward nasal septal deviation. IMPRESSION: Paranasal sinus disease can be seen, which is worst within the left sphenoid sinus. The ostiomeatal complexes are patent, yet they are constitutionally narrowed, with bilateral Adrianne cells. Dictated by: Nando Aaron M.D. on 11/06/2023 at 16:59 Approved by: Nando Aaron M.D. on 11/06/2023 at 17:00
== END ==
PROVIDERS: PCP Family Medicine; Referring Provider Family Medicine; Visit Provider Family Medicine
DX: J01.00 Acute maxillary sinusitis, unspecified (principal); J32.8 Other chronic sinusitis
CPT/HCPCS: 70486

== ENCOUNTER → 2023-11-13 10:22 | Outpatient (CLI) | payer MEDICARE, OTHER, SELFPAY ==
--- NOTE | 2023-11-21 14:21 | DIAB.MNT ---
Initial Diabetes Medical Nutrition Therapy Assessment Name: Bridgette Mcdonald Date: 11/13/23 Time: [id number] Dx: Type II Diabetes Bridgette presents for initial DM visit. Reports difficulty with managing DM diet with kidney stone diet. Tries to balance CHO, protein, and Na. Extensive hx of kidney stones per report. Started 2014, 6 surgeries from 1831-2245. Then no stones x 5 years. Now recent stone, reportedly citric acid (where previous stones were ca oxalate). Endorses 25# wt loss in the last 5 months. Feels frustrated with diets. Reading food labels. Reports looking at cholesterol for heart health, not sat fats. Avoiding Na. States last RD said she could have a lot of foods that she felt she could not have due to kidney stone hx. Feels she incorporated these foods and then developed a stone. When feeling low/shaky, will eat protein. Diet Recall: 8a: egg, yogurt, black coffee 1p: protein, one fruit, veggies sn; low Na nuts or 10 chips or pro drink or smoothie 6p: 3-4oz protien, veggies 9p: pro shake or nuts or popcorn no salt 80oz water Anthropometrics: Ht: 66 Wt: 213# 08/2023 Physical Activity: Limited since covid in Jun. walking 5x per week for 1-2 mi to try and get up to 3-5 mi. Barrier: knee pain. Self-Monitoring Blood Glucose: Checking FBG and some postprandial. FBG since September ranging from 118-158mg/dl. All other readings under 145mg/dl. Diabetes Medications: 500mg Metformin XR BID 10mg glipizide BID Pertinent Labs: hgA1c: 9% 12/2022 9% 03/2023 6.4% (reported recent) 03/2023 chol 164 HDL 37 TG 200 LDL 87 Past Medical History: (Last Reviewed 09/04/21 @ 14:23 by Estelle Baumann PA-C) Hypertension Hypothyroidism Kidney stones Lithotripsy and stone extraction in the past. Morbid obesity with body mass index (BMI) of 40.0 to 49.9 Muscle strain Obesity (BMI 30-39.9) Obstructive sleep apnea Right-sided ischial pain Type 2 diabetes mellitus Nutrition Rx: Carbohydrates: Meal:30g Snack:15-30g 1500mg Na per day 3L water per day Nutrition Diagnosis: - Nutrition knowledge deficit r/t needing more info on how to manage 2 disease states with nutrition aeb pt report Intervention: This participant was very receptive. Provided appropriate educational handouts. Discussed the following topics: Completed intake assessment. Discussed barriers to care. Pathophysiology of T2DM how to manage kidney stone MNT depending on type of kidney stone and Dm MNT Importance of self-monitoring, how often, and when to check. Suggested checking at different times to evaluate meals Plate Method, impact of macronutrients on blood sugar, meal timing, carbohydrate counting, pairing macronutrients and spreading out carbohydrates for better blood glucose management Recommended servings for carbohydrates at meals and snacks Heart health nutrition Label reading Role of physical activity and following provider guidelines for safety Created SMART goals for patient self-care and success. Goals: Try consistent HS snack Read labels for saturated fat Add PB toast to breakfast Make a note of when HS snack prior to FBG Follow-up: CAMILO PETERSEN follow-up in 2-3 weeks Izabel Cole RDN, NICOLA Certified Diabetes Care and Digital Data Analyst P: [phone] Thank you for this referral
== END ==
LOC: DIET 10:23
PROVIDERS: PCP Family Medicine; Referring Provider Family Medicine; Visit Provider Family Medicine
DX: E11.9 Type 2 diabetes mellitus without complications (principal); Z79.84 Long term (current) use of oral hypoglycemic drugs; Z71.3 Dietary counseling and surveillance
CPT/HCPCS: 97802

== ENCOUNTER → 2023-12-18 08:54 | Outpatient (CLI) | payer MEDICARE, OTHER, SELFPAY ==
--- NOTE | 2024-01-07 16:30 | DIAB.MNTFU ---
Follow-up Diabetes Medical Nutrition Therapy Assessment Name: Bridgette Mcdonald Date: 12/18/23 Time: [id number] Dx: Type II Diabetes Reports needing recipe ideas. Increased veggies at dinner. Has cut out CHO at dinner. Surprised by sat fat in certain foods after reading labels. Choosing low CHO yogurt with stevia. Tried HS snack, but did not improve FBG. Anthropometrics: Ht: 66 Wt: 213# 08/2023 Physical Activity: Limited since covid in Jun. walking 5x per week for 1-2 mi to try and get up to 3-5 mi. Barrier: knee pain. Self-Monitoring Blood Glucose: Checking FBG and some postprandial. Recent FBG ranging from 127-183mg/dl. After meal readings in goal and often <140mg/dl. Diabetes Medications: 500mg Metformin XR BID 10mg glipizide BID Pertinent Labs: hgA1c: 9% 12/2022 9% 03/2023 6.4% (reported recent) 03/2023 chol 164 HDL 37 TG 200 LDL 87 Past Medical History: (Last Reviewed 09/04/21 @ 14:23 by Estelle Baumann PA-C) Hypertension Hypothyroidism Kidney stones Lithotripsy and stone extraction in the past. Morbid obesity with body mass index (BMI) of 40.0 to 49.9 Muscle strain Obesity (BMI 30-39.9) Obstructive sleep apnea Right-sided ischial pain Type 2 diabetes mellitus Nutrition Rx: Carbohydrates: Meal:30g Snack:15-30g 1500mg Na per day 3L water per day 8g sat fat per day Nutrition Diagnosis: - Nutrition knowledge deficit r/t needing more info on how to manage 2 disease states with nutrition aeb pt report - Physical inactivity r/t pain barrier aeb pt report Intervention: This participant was very receptive. Provided appropriate educational handouts. Discussed the following topics: Blood sugar review and trends. recipe ideas and resources Different types of yogurts and label reading Impact of gluconeogenesis on FBG potentially Role of Phys activity and meds on FBG Created SMART goals for patient self-care and success. Goals: Try consistent HS snack- met Read labels for saturated fat- met Add PB toast to breakfast- d/c Make a note of when HS snack prior to FBG- met Continue to monitor FBG- new D/c HS snack to see impact on FBG- new Try a new recipe- new Follow-up: CAMILO PETERSEN follow-up in 4-6 weeks. PCP visit scheduled for January Izabel Cole RDN, NICOLA Certified Diabetes Care and Visual Effects Artist P: [phone] Thank you for this referral
== END ==
PROVIDERS: PCP Family Medicine; Referring Provider Family Medicine
DX: E11.9 Type 2 diabetes mellitus without complications (principal); Z79.84 Long term (current) use of oral hypoglycemic drugs; Z71.3 Dietary counseling and surveillance
CPT/HCPCS: 97803

== ENCOUNTER → 2024-01-27 09:47 | Outpatient (ROUT) | payer MEDICARE, OTHER, SELFPAY ==
[2024-01-27 10:01] LABS: INR 1.1 (0.9-1.3); Prothrombin Time 12.1 SECONDS (9.4-12.5)
== END ==
PROVIDERS: PCP Family Medicine; Visit Provider Student in an Organized Health Care Education/Training Program
DX: K74.60 Unspecified cirrhosis of liver (principal); Z12.89 Encounter for screening for malignant neoplasm of other sites
CPT/HCPCS: 85610

== ENCOUNTER → 2024-02-19 12:53 | Outpatient (CLI) | payer MEDICARE, OTHER, SELFPAY ==
--- NOTE | 2024-03-04 16:19 | DIAB.FU ---
Follow-up Diabetes Education Assessment Name: Bridgette Mcdonald Date: 02/19/24 Time: 1-145p Dx: Type II Diabetes Provider: Jose Bridgette presents for follow-up DM visit. Reports increased stress, PCP has increased her antidepressant, endorses good network of friends. Stress management techniques include going out with friends and swimming at a friend's house. States stress is mainly r/t recent dx of with dementia. They will be moving onto her son's property and selling her house. Has noticed increased BG. Reports recent labs indicated reduced cholesterol and liver enzymes. Enjoyed recipe website provided last visit. Feels better with higher fiber foods. Has questions about how to make her oatmeal more BG friendly. Has questions regarding substitute sweeteners. Seems to need review of BG goals and when to check pc. Anthropometrics: Ht: 66 Wt: 213# 08/2023-- no change pre report. Physical Activity: walking 2-3x per week for 3 miles. Less lately due to packing house. Self-Monitoring Blood Glucose: Checking FBG and some immediately after eating. FBG running 134-190mg/dl with most between 140-160mg/dl. Checking right after meal number was 170mg/dl, which is likely lower than true 1-2 hour postprandial reading. Diabetes Medications: 500mg Metformin XR BID 10mg glipizide BID Pertinent Labs: hgA1c: 9% 12/2022 9% 03/2023 6.4% (reported 12/2023) 03/2023 chol 164 HDL 37 TG 200 LDL 87 Past Medical History: (Last Reviewed 09/04/21 @ 14:23 by Estelle Baumann PA-C) Hypertension Hypothyroidism Kidney stones Lithotripsy and stone extraction in the past. Morbid obesity with body mass index (BMI) of 40.0 to 49.9 Muscle strain Obesity (BMI 30-39.9) Obstructive sleep apnea Right-sided ischial pain Type 2 diabetes mellitus Intervention: This participant was very receptive. Provided appropriate educational handouts. Discussed the following topics: Recent blood sugar results and trends When to check BG: FBG and a few 1-2 hour pc BG goals for FBG and postprandial based on ADA recs Stress and BG Heart healthy nutrition Review of carb recs for meals/snacks Sub sweeteners as a tool in moderation prn Created SMART goals for patient self-care and success. Goals: Continue to monitor FBG- met D/c HS snack to see impact on FBG- met Try a new recipe- met Write down a few meals- new Check FBG and/or a few postprandial at 1-2 hour spencer- new Bring FBG to PCP visit- new Follow-up: CAMILO PETERSEN follow-up in 3 months per pt req. Izabel Cole, CAMILO, NICOLA Certified Diabetes Care and Dining Host P: [phone] Thank you for this referral
== END ==
PROVIDERS: PCP Family Medicine; Referring Provider Family Medicine
DX: E11.9 Type 2 diabetes mellitus without complications (principal); Z79.84 Long term (current) use of oral hypoglycemic drugs; Z71.3 Dietary counseling and surveillance
CPT/HCPCS: G0108

== ENCOUNTER → 2024-03-06 | Outpatient (CLI) | payer MEDICARE, OTHER, SELFPAY ==
--- NOTE | 2024-03-06 17:23 | DI.MG.S_ITS ---
Patient Name: MICAELA ALBERTO date: 1950 Sex: F Attending Physician: Jose Indications: Date: 03/09/2024 12:13 At the request of: LUCÍA VERDUGO Procedure: MM screening mammo BI BILATERAL DIGITAL SCREENING MAMMOGRAM 3D/2D WITH CAD: 03/06/2024 CLINICAL: Routine screening. Family history of breast cancer. Comparison is made to exams dated: 02/27/2023 mammogram, 02/26/2022 mammogram, and 02/24/2021 mammogram - [facility]. Both breasts are almost entirely fatty (category a/<25% glandular tissue). Current study was also evaluated with a Computer Aided Detection (CAD) system. No significant masses, calcifications, or other findings are seen in either breast. There has been no significant interval change. IMPRESSION: NEGATIVE There is no mammographic evidence of malignancy. A 1 year screening mammogram is recommended. Based on the Tyrer Cuzick model (a risk assessment model) the patient's lifetime risk is 3.3% and her 10 year risk is 2.2%. According to the ACR, ACS, and NCCN guidelines, an annual breast MRI exam along with mammogram is recommended if the patient's lifetime risk is 20% or greater. This exam was interpreted at Station ID: [id number]. NOTE: For mammograms, a report in lay terms will be sent to the patient. Approximately 15% of breast malignancies will not be visualized mammographically. In the management of a palpable breast mass, a negative mammogram must not discourage biopsy of a clinically suspicious lesion. Continued Report - Page 2 of 2 Patient Name: MICAELA ALBERTO date: 1950 Sex: F Attending Physician: Jose Indications: Date: 03/09/2024 12:13 At the request of: LUCÍA VERDUGO Procedure: MM screening mammo BI Electronically Signed By: Samm nicholas/jovita:03/09/2024 12:13:40 letter sent: Normal Exam ACR BI-RADS Category 1: Negative [id number]
== END ==
LOC: MAMMO 17:15
PROVIDERS: PCP Family Medicine; Referring Provider Family Medicine; Visit Provider Family Medicine
DX: Z12.31 Encounter for screening mammogram for malignant neoplasm of breast (principal); Z80.3 Family history of malignant neoplasm of breast; R92.313 Mammographic fatty tissue density, bilateral breasts
CPT/HCPCS: 77063; 77067

== ENCOUNTER → 2024-05-20 08:51 | Outpatient (CLI) | payer MEDICARE, OTHER, SELFPAY ==
--- NOTE | 2024-06-09 16:44 | DIAB.FU ---
Follow-up Diabetes Education Assessment Name: Bridgette Mcdonald Date: 05/20/24 Time: 271-475n Dx: Type II Diabetes Provider: Jose Bridgette presents for follow-up DM visit. Started Jardiance. States she has been prone to yeast infections even prior to starting med. Endorses increased urination. Sees PCP again at end of the month. Reports keeping a food journal and determining she was eating larger portions than she thought. States she had not been measuring. Has reduced portions since. Tracking CHO intake and aiming for 20-30g per meal. Having protein more consistently and watching portions. moving from [place] to [place]. States moving has been difficult since 's dementia is limiting his abilities. Endorses d/c of supplement, Elderberry, at [employer] recommendation. Worried about potential liver damage. Anthropometrics: Ht: 66 Wt: 213# 08/2023-- no change pre report. Physical Activity: walking 2-3x per week for 3 miles. Self-Monitoring Blood Glucose: Checking FBG. Recent readings: 143, 132, 105, 136, 130, 155, 142 mg/dl. Most just above goal. May benefit from 25mg Jardiance as long as she can tolerate, ie no yeast infections. Diabetes Medications: 500mg Metformin XR BID 10mg glipizide BID Jardiance 10mg Pertinent Labs: hgA1c: 9% 12/2022 9% 03/2023 6.4% 12/2023 (reported) 7.2% 04/2024 (reported) 03/2023 chol 164 HDL 37 TG 200 LDL 87 Past Medical History: (Last Reviewed 09/04/21 @ 14:23 by Estelle Baumann PA-C) Hypertension Hypothyroidism Kidney stones Lithotripsy and stone extraction in the past. Morbid obesity with body mass index (BMI) of 40.0 to 49.9 Muscle strain Obesity (BMI 30-39.9) Obstructive sleep apnea Right-sided ischial pain Type 2 diabetes mellitus Intervention: This participant was very receptive. Provided appropriate educational handouts. Discussed the following topics: Recent blood sugar results and trends FBG goals ways to reduce SE of Jardiance BG checks and postprandial goals Carb portion recs and changes she has made Stress in her life and stress management Created SMART goals for patient self-care and success. Goals: Write down a few meals- met Check FBG and/or a few postprandial at 1-2 hour spencer- 50% met Bring FBG to PCP visit- met Rinse after urination to reduce sugar in the area- new Check a few pc readings- new Follow-up: CAMILO PETERSEN follow-up in 2-3 months per pt request. Izabel Cole RDN, [facility] Certified Diabetes Care and Fruit Harvester Machine Operator P: [phone] Thank you for this referral
== END ==
PROVIDERS: PCP Family Medicine; Referring Provider Family Medicine
DX: E11.9 Type 2 diabetes mellitus without complications (principal); Z71.3 Dietary counseling and surveillance; Z79.84 Long term (current) use of oral hypoglycemic drugs
CPT/HCPCS: G0108

== ENCOUNTER → 2024-07-21 08:49 | Outpatient (CLI) | payer MEDICARE, OTHER, SELFPAY ==
--- NOTE | 2024-09-04 17:22 | DIAB.FU ---
Follow-up Diabetes Education Assessment Name: Bridgette Mcdonald Date: 07/21/24 Time: 9930a Dx: Type II Diabetes Provider: Jose Bridgette presents for follow-up DM visit. Moving right now, which has been a challenge with husbands cognitive impairment. Eating less overall per report. Endorses recent fall. having stress with 's health, moving, and her own health considerations between her liver specialist and her ply bander per report. Coping with playing games on her phone, tv, and readings. 2 months ago PCP reduced glipizide per report. Sees PCP again August. Eating more on the go, using protein shakes increased water intake with excessive thirst. Diet recall: B: yogurt sn: protein shake L nothing sn: sf soda, small apple +/- pb D: protein, veggies and protein drink no HS snack Physical Activity: ADLs with movement in moving/packing. No program. Self-Monitoring Blood Glucose: Checking FBG. Recent readings: 182, 186, 204, 165, 215, 169, 200 up from previous visit Diabetes Medications: 500mg Metformin XR BID 10mg glipizide BID Jardiance 25mg Pertinent Labs: hgA1c: 9% 12/2022 9% 03/2023 6.4% 12/2023 (reported) 7.2% 04/2024 (reported) 03/2023 chol 164 HDL 37 TG 200 LDL 87 Past Medical History: (Last Reviewed 09/04/21 @ 14:23 by Estelle Baumann PA-C) Hypertension Hypothyroidism Kidney stones Lithotripsy and stone extraction in the past. Morbid obesity with body mass index (BMI) of 40.0 to 49.9 Muscle strain Obesity (BMI 30-39.9) Obstructive sleep apnea Right-sided ischial pain Type 2 diabetes mellitus Intervention: This participant was very receptive. Provided appropriate educational handouts. Discussed the following topics: Recent blood sugar results and trends FBG goals Stress management and impact on BG Medication management meal timing and portions, protein recs and excessive intake at dinner Created SMART goals for patient self-care and success. Goals: Rinse after urination to reduce sugar in the area- not met Check a few pc readings- not met Call PCP about DM med adjustments- new Move dinner shake to HS snack- new Follow-up: RDSiomara CDCES follow-up in 2-3 months per pt request. Izabel Cole RDN, [facility] Certified Diabetes Care and Restaurant Inspector P: [phone] Thank you for this referral
== END ==
PROVIDERS: PCP Family Medicine; Referring Provider Family Medicine
DX: E11.9 Type 2 diabetes mellitus without complications (principal); Z71.3 Dietary counseling and surveillance; Z79.84 Long term (current) use of oral hypoglycemic drugs
CPT/HCPCS: G0108

== ENCOUNTER → 2024-09-23 08:47 | Outpatient (CLI) | payer MEDICARE, OTHER, SELFPAY ==
--- NOTE | 2024-11-11 16:39 | DIAB.MNTFU ---
Follow-up Diabetes Medical Nutrition Therapy Assessment Name: Bridgette Mcdonald Date: 09/23/24 Time: 6-287c Dx: Type II Diabetes Provider: Jose Bridgette presents for follow-up DM visit. Focusing more on Mediterranean diet since [facility] wants her to be on this diet regarding cognitive impairment. Started meds for stress and motivation. Increased water intake. Working hard packing and storing with their move. Using protein shakes 2x per week. Wants to lose wt. When BG is lower in 70-80 range, feels sweaty. Reports PCP plans to d/c glipizide in December likely. Diet recall: 8a: yogurt 10a: small banana +/- pb 1230p: turkey and veggies 3-4p: nuts or 2c popcorn or fruit 6p: protein, veggies 10p almonds 16oz tea 65oz+ water urologist rec 80oz per report Reported wt: 210# Physical Activity: ADLs with movement in moving/packing. No program. Has a treadmill, son had a pelaton. is joining a gym. She enjoys swim. Feels she may be able to be more active after this move in November. Self-Monitoring Blood Glucose: Checking FBG. Improved with higher dose Jardiance. Recent readings: 129, 122, 132, 127, 131, 120 Diabetes Medications: 500mg Metformin XR BID 5mg glipizide Jardiance 25mg Pertinent Labs: hgA1c: 9% 12/2022 9% 03/2023 6.4% 12/2023 (reported) 7.2% 04/2024 (reported) 03/2023 chol 164 HDL 37 TG 200 LDL 87 Past Medical History: (Last Reviewed 09/04/21 @ 14:23 by Estelle Baumann PA-C) Hypertension Hypothyroidism Kidney stones Lithotripsy and stone extraction in the past. Morbid obesity with body mass index (BMI) of 40.0 to 49.9 Muscle strain Obesity (BMI 30-39.9) Obstructive sleep apnea Right-sided ischial pain Type 2 diabetes mellitus Nutrition Rx: Carbohydrates: Meal:30g Snack:15-30g Nutrition Diagnosis: - Nutrition knowledge deficit r/t needing more info on how to manage 2 disease states with nutrition aeb pt report - Physical inactivity r/t pain barrier aeb pt report Intervention: This participant was very receptive. Provided appropriate educational handouts. Discussed the following topics: Recent blood sugar results and trends Physical activity nutrition recs and portions wt management goals and strategies Created SMART goals for patient self-care and success. Goals: Call PCP about DM med adjustment- met Move dinner shake to HS snack- d/c Start walking in November - Follow-up: CAMILO PETERSEN follow-up in 2-3 months per pt req. Izabel Cole RDN, [facility] Certified Diabetes Care and [employer] Miner P: [phone] Thank you for this referral
== END ==
PROVIDERS: PCP Family Medicine; Referring Provider Family Medicine
DX: E11.9 Type 2 diabetes mellitus without complications (principal); Z79.84 Long term (current) use of oral hypoglycemic drugs; Z71.3 Dietary counseling and surveillance
CPT/HCPCS: 97803

== ENCOUNTER → 2024-10-28 14:44 | Outpatient (CLI) | payer MEDICARE, OTHER, SELFPAY | PROVIDERS: PCP Family Medicine; Visit Provider Urology | DX: R39.9 Unspecified symptoms and signs involving the genitourinary system (principal); N32.81 Overactive bladder; R35.1 Nocturia; R32 Unspecified urinary incontinence; Z87.442 Personal history of urinary calculi | CPT/HCPCS: 87086; 99214 ==

== ENCOUNTER 2024-11-02 06:10 | Day surgery (SDC) | payer MEDICARE, OTHER, SELFPAY ==
[2024-10-27 10:39] VITALS: BMI 35.4
--- NOTE | 2024-11-02 07:26 | PM.PREOP ---
Pre-operative Note COVID-19 COVID-19 status: Not tested Interval Note History & Physical reviewed/Exam performed by Physician: Yes Changes to H&P: No
[2024-11-02] MEDS: ACETAMINOPHEN 325 MG TABLET 975 MG PO (07:27)
[2024-11-02 07:35] VITALS: BP 120/68; PULSE 57; RESP 18; TEMP 36.3; O2SAT 99; BMI 35.4
[2024-11-02] MEDS: LACTATED RINGERS 1,000 ML 42 ML IV (07:43)
--- NOTE | 2024-11-02 07:50 | SUR.OPER ---
Lithotomy on padded OR bed, head on pillow, arms secured on padded arm boards at <90 degrees abduction. Legs secured in padded yellow fins stirrups.
[2024-11-02] MEDS: levoFLOXacin 750 MG/150 ML PIGGYBACK 100 MG IV (07:53)
[2024-11-02] MEDS: ONABOTULINUMTOXINA 100 UNIT VIAL INJ (08:04)
[2024-11-02 08:16] VITALS: BP 95/58; PULSE 56; RESP 10; TEMP 36.7; O2SAT 94
--- NOTE | 2024-11-02 08:19 | PM.OP.1 ---
Operative Date/Time/Diagnoses Pre-op diagnosis: Overactive bladder Post-op diagnosis: same Procedure & Clinicians Procedure: Cystoscopy Intravesical instillation of botox Same procedure as scheduled: Yes Indications: 74 y/o F noted to have symptoms consistent w/ OAB that are inadequately controlled with her current medication regimen and strongly desires management via a cystoscopy with intravesical instillation of Botox. Surgeon: Venu Nguyen Click Yes if Unassisted: Yes Anesthesia Type: General Operative Notes Findings: Unremarkable cystoscopy Closure Type: not applicable Specimen(s): none sent Blood products transfused: none Procedure in detail: Patient was identified in the preoperative holding area and consent confirmed. She was then brought to the operating room where general anesthesia was induced.? She was placed in the low lithotomy position. She was then prepped and draped in the usual sterile fashion. A surgical timeout was conducted and all were in agreement. Access to the bladder was obtained via a 30 degree cystoscope.? Complete cystoscopy was then performed and no concerning bladder masses or lesions were appreciated.? Bilateral ureteral orifices were easily identified and noted to be orthotopic in nature.? 100 units of Botox were then mixed with 10cc of saline. Using the botox needle, 0.5 cc's of the aforementioned mixture were injected into the posterior bladder wall for a total of 20 different injection sites. Hemostasis was evaluated at case end and noted to be excellent. Anesthesia was reversed, she was extubated in the OR and transferred to the PACU in stable condition for recovery. Complications: none Post-operative Condition: stable Disposition: PACU Plan for aftercare: Discharge home from PACU. Will contact the Urology clinic in 4 weeks if she experiences minimal symptom improvement. If she experiences significant improve, will contact the Urology clinic when her Botox begins to wear off in order to schedule a repeat procedure.
[2024-11-02 08:20] VITALS: BP 95/58; PULSE 56; RESP 15; O2SAT 93
[2024-11-02 08:25] VITALS: BP 94/59; PULSE 55; RESP 14; O2SAT 95
[2024-11-02 08:31] VITALS: BP 104/63; PULSE 56; RESP 13; TEMP 36.2; O2SAT 96
[2024-11-02] MEDS: ONDANSETRON 4 MG/2 ML INJ IV (08:34)
[2024-11-02] MEDS: OXYCODONE IR 5 MG TABLET PO (08:34)
== END 2024-11-02 09:00 | disposition home or self-care (01) ==
PROVIDERS: PCP Family Medicine; Referring Provider Urology; Visit Provider Urology
PROC: (CPT 52287; principal; 2024-11-02 07:45)
DX: N32.81 Overactive bladder (principal)
CPT/HCPCS: 52287; 82962; J0585; J1100; J1956; J2405; J2704

== ENCOUNTER → 2025-01-13 08:44 | Outpatient (CLI) | payer MEDICARE, OTHER, SELFPAY ==
--- NOTE | 2025-01-13 09:02 | DIAB.MNTFU ---
Follow-up Diabetes Medical Nutrition Therapy Assessment Name: Bridgette Mcdonald Date: 01/13/25 Time: 9-940a Dx: Type II Diabetes Provider: Jose Bridgette presents for follow-up DM visit. Saw PCP and d/c of glipizide. Reports some significant lows since last visit, in the 40s. Recent hgA1c was 5.6% or 5.8%. Since d/c of glipizide reports some BG in the 70s in the afternoon, has occurred 2x. Struggling with appetite. Bored with food options. Recent trip and has questions about occasional ETOH intake and impact on BG. Feels she wants to restart food journal. Diet recall: 8a: yogurt 1230p: 1/2 ww turkey 3-4p: fruit or veggies 6p: protein, veggies (salad and another veggies) 10p almonds/mixed nuts 16oz tea 65oz+ water urologist rec 80oz per report Reported wt: 207# reported 01/2025 Physical Activity: Working in the yard and walking Self-Monitoring Blood Glucose: Not checking consistently. Checks occasionally in the afternoon, getting mixed results. Sometimes in goal. Sometimes in the 70s. Encouraged her to try consistent energy intake, but if BG continue <80 may benefit from reduction again in DM meds. Diabetes Medications: 500mg Metformin XR BID Jardiance 25mg Pertinent Labs: hgA1c: 9% 12/2022 9% 03/2023 6.4% 12/2023 (reported) 7.2% 04/2024 (reported) 5.6 or 5.8% (reported) 03/2023 chol 164 HDL 37 TG 200 LDL 87 Past Medical History: (Last Reviewed 09/04/21 @ 14:23 by Estelle Baumann PA-C) Hypertension Hypothyroidism Kidney stones Lithotripsy and stone extraction in the past.Morbid obesity with body mass index (BMI) of 40.0 to 49.9 Muscle strain Obesity (BMI 30-39.9) Obstructive sleep apnea Right-sided ischial pain Type 2 diabetes mellitus Nutrition Rx: Carbohydrates: Meal:30gSnack:15-30g Protein: 60-90g per day (0.6-1g/kg) Nutrition Diagnosis: - Nutrition knowledge deficit r/t needing more info on how to manage 2 disease states with nutrition aeb pt report- in progress/improved - Physical inactivity r/t pain barrier aeb pt report- improved Intervention: This participant was very receptive. Provided appropriate educational handouts. Discussed the following topics: Recent blood sugar trends Meal planning and resources BG goals Recipes for breakfast ETOH and BG Physical activity nutrition recs and portions Created SMART goals for patient self-care and success. Goals: Start walking in November - met Start food journal- new Try a new breakfast- new Follow-up: CAMILO PETERSEN follow-up in 4 months per pt req. Izabel Cole RDN, [facility] Certified Diabetes Care and Financial Service Representative P: [phone] Thank you for this referral
== END ==
LOC: DIET 08:44
PROVIDERS: PCP Family Medicine; Referring Provider Family Medicine
DX: E11.9 Type 2 diabetes mellitus without complications (principal); Z79.84 Long term (current) use of oral hypoglycemic drugs; Z71.3 Dietary counseling and surveillance
CPT/HCPCS: 97803

== ENCOUNTER → 2025-02-23 12:46 | Outpatient (CLI) | payer MEDICARE, OTHER, SELFPAY ==
--- NOTE | 2025-02-23 12:47 | DI.RAD.S_ITS ---
PROCEDURE: XR KUB INDICATIONS: Kidney Stones TECHNIQUE: One view of the abdomen acquired. COMPARISON: [facility], , KUB XRAY (1 VIEW ABDOMEN), 09/12/2015, 13:38. FINDINGS: Stool gas pattern: Normal-no evidence of ileus or obstruction. No free intraperitoneal or extraperitoneal air. No gross evidence of ascites Soft tissues: 5 calcifications are seen in the right true pelvis ranging between 3 and 8 mm. These are likely phleboliths and/or calcified granulomas rather than stones. Two small 3 mm calcifications in the left true pelvis are likely phleboliths but left ureteral stone not excluded. Organs: No gross evidence for organomegaly. IMPRESSION: Pelvic calcifications as described Dictated by: Balbir Steinberg M.D. on 02/24/2025 at 11:38 Approved by: Balbir Steinberg M.D. on 02/24/2025 at 11:39
== END ==
PROVIDERS: PCP Family Medicine; Referring Provider Urology; Visit Provider Urology
DX: N20.0 Calculus of kidney (principal); Z87.442 Personal history of urinary calculi
CPT/HCPCS: 74018

== ENCOUNTER → 2025-03-01 08:31 | Outpatient (CLI) | payer MEDICARE, OTHER, SELFPAY ==
--- NOTE | 2025-03-01 08:33 | DI.CT.S_ITS ---
PROCEDURE: CT KIDNEY URETER BLADDER (KUB) INDICATIONS: 74 y/o F w/ concern for left ureteral stone TECHNIQUE: Axial sections were acquired from the lung bases to the pubic symphysis. Coronal and sagittal reformats were performed. For radiation dose reduction, the following was used: automated exposure control, adjustment of mA and/or kV according to patient size. COMPARISON: None. FINDINGS: Image quality: Diagnostic. Lower Chest: Small hiatal hernia. URINARY: Right Kidney: No stones or hydronephrosis. Right Ureter: No hydroureter. Left Kidney: Nonobstructing 3 mm inferior pole calculus. No hydronephrosis Left Ureter: No hydroureter. Bladder: Normal wall thickness. No stones. ABDOMEN: Liver: No contour-deforming solid mass. Gallbladder: No radiopaque gallstones or wall thickening. Biliary ducts: No biliary dilation. Pancreas: No ductal dilation. Spleen: Size is within normal limits. Adrenal Glands: No adrenal nodules. Stomach and Bowel: Normal colonic caliber, without significant wall thickening. Appendix is not definitively visualized, however no secondary signs of inflammation are seen in the right lower quadrant to suggest acute appendicitis. Peritoneum: No abnormal intraperitoneal fluid. No free air. Ventral Wall: No hernia. Abdominal Nodes: No enlarged retroperitoneal or mesenteric lymph nodes. Vessels: Aorta and inferior vena cava are normal in size. PELVIS: Pelvic Organs: Unremarkable. Pelvic Nodes: Unremarkable. Miscellaneous: No inguinal hernias are seen. Bones: Multilevel degenerative changes without acute vertebral body compression fracture. IMPRESSION: No obstructing stones or hydronephrosis. Left inferior pole 3 mm nonobstructing calculus. Approved by: Yvette Dawn M.D.,Ph.D. on 03/01/2025 at 10:29
== END ==
PROVIDERS: PCP Family Medicine; Referring Provider Family Medicine; Visit Provider Urology
DX: N20.0 Calculus of kidney (principal); K44.9 Diaphragmatic hernia without obstruction or gangrene; Z87.442 Personal history of urinary calculi
CPT/HCPCS: 74176

== ENCOUNTER → 2025-03-08 14:18 | Outpatient (CLI) | payer MEDICARE, OTHER, SELFPAY ==
--- NOTE | 2025-03-08 14:19 | DI.MG.S_ITS ---
MM screening mammo BI: 03/08/2025. BI-RADS: 1 CLINICAL: 74-year old female for bilateral screening mammogram. Tyrer-Cuzick lifetime risk of 2.9%. No personal or first-degree family history of breast cancer. PRIOR EXAMS 03/06/2024, 02/27/2023, 02/26/2022, 02/24/2021. MAMMOGRAPHY TECHNIQUE: 2D and 3D (tomosynthesis) digital mammographic views obtained, with additional images as needed for full coverage. Current study was also evaluated with a Computer Aided Detection (CAD) system. DENSITY A. The breasts are almost entirely fatty. MAMMOGRAPHY FINDINGS Bilateral: No suspicious mass, asymmetry, microcalcification, or other abnormality seen. IMPRESSION: * No evidence of malignancy. RECOMMENDATIONS Bilateral * Annual screening mammography. OVERALL ASSESSMENT CATEGORY BI-RADS-1: Negative. The [employer] recommends annual screening mammography beginning at age 40 for women with average risk of breast cancer. ELECTRONICALLY SIGNED: Jennifer Dotson M.D. on 03/08/2025 at 04:57:31 PM PT Interpreting Station ID: [id number]
== END ==
PROVIDERS: PCP Family Medicine; Referring Provider Family Medicine; Visit Provider Family Medicine
DX: Z12.31 Encounter for screening mammogram for malignant neoplasm of breast (principal); R92.313 Mammographic fatty tissue density, bilateral breasts
CPT/HCPCS: 77063; 77067

== ENCOUNTER → 2025-05-19 08:44 | Outpatient (CLI) | payer MEDICARE, OTHER, SELFPAY ==
--- NOTE | 2025-05-19 09:52 | DIAB.MNTFU ---
Follow-up Diabetes Medical Nutrition Therapy Assessment Name: Bridgette Mcdonald Date: 05/19/25 Time: 9-930a Dx: Type II Diabetes Bridgette presents for follow-up DM visit. Started Mounjaro without SE. Has had reported weight loss of 16# since March. Plans to move up to next dose of 5mg per week. Has questions about sustaining wt loss and thoughts on this med, despite she is well read on this medication. Endorses reduced appetite but eating at least 3x per day. Taking probiotic daily. BM are improved and now daily. Does reports 2-3x of 70mg/dl on current Dm med regimen. May benefit from reduction in Jaridance or Metformin. With this value she felt lethargy, weak, lightheaded, overall unwell. Ate food and felt better. Getting sick of proteins she is currently eating. Diet recall: 0a: yogurt with sm banana +/- nuts 3p: string cheese or protein shake 6p: protein, veggies and fruit 10p almonds/mixed nuts or nothing water urologist rec 80oz per report Reported wt: 196# reported 05/2025 207# reported 01/2025 Physical Activity: Increased activity with walking 1-2mi x 4 days per week. Would like to increase distance per report. Self-Monitoring Blood Glucose: Checking FBG which are usually 120-130mg/dl Diabetes Medications: 500mg Metformin XR BID Jardiance 25mg 2.5-5mg Mounjaro Pertinent Labs: hgA1c: 9% 12/2022 9% 03/2023 6.4% 12/2023 (reported) 7.2% 04/2024 (reported) 5.6 or 5.8% (reported) 5.6% 05/2025 (reported) Past Medical History: (Last Reviewed 09/04/21 @ 14:23 by Estelle Baumann PA-C) Hypertension Hypothyroidism Kidney stones Lithotripsy and stone extraction in the past.Morbid obesity with body mass index (BMI) of 40.0 to 49.9 Muscle strain Obesity (BMI 30-39.9) Obstructive sleep apnea Right-sided ischial pain Type 2 diabetes mellitus Nutrition Rx: Carbohydrates: Meal:30gSnack:15-30g Protein: 60-90g per day (0.6-1g/kg) Nutrition Diagnosis: - Nutrition knowledge deficit r/t needing more info on how to manage 2 disease states with nutrition aeb pt report- in progress/improved - Physical inactivity r/t pain barrier aeb pt report- improved Intervention: This participant was very receptive. Provided appropriate educational handouts. Discussed the following topics: Recent blood sugar trends BG and hga1c goals Protein ideas Physical activity Fiber intake and BM freq with increased GLP1 Created SMART goals for patient self-care and success. Goals: Start food journal- not met Try a new breakfast- met Eat TID- new Walk 2-3 mi x 4days per week- new If BM freq reduced with increased GLP1, consider fiber supplement- new Follow-up: CAMILO PETERSEN follow-up in 6 months per pt req. Izabel Cole, CAMILO, MIGUEL ANGELES Certified Diabetes Care and Reference Archivist P: [phone] Thank you for this referral
== END ==
PROVIDERS: PCP Family Medicine; Referring Provider Family Medicine
DX: E11.9 Type 2 diabetes mellitus without complications (principal); Z71.3 Dietary counseling and surveillance; Z79.85 Long-term (current) use of injectable non-insulin antidiabetic drugs; Z79.84 Long term (current) use of oral hypoglycemic drugs
CPT/HCPCS: 97803